=== PATIENT | female | born 1985 ===

== ENCOUNTER → 2020-02-17 | Outpatient (CLI) | payer BC ==
--- NOTE | 2020-02-17 22:38 | CT ---
EXAMINATION TYPE: CT sinus wo con DATE OF EXAM: 02/17/2020 COMPARISON: None HISTORY: Chronic sinusitis CT DLP: 577.30 mGycm CONTRAST: 0 mL of Isovue 300 The paranasal sinuses are examined in the axial plane at 2 mm thick sections. Reconstructed images i n the coronal plane were obtained. There is dental amalgam scatter artifact The maxillary sinuses are clear. The ethmoid air cells are clear. The sphenoid sinuses are clear. The frontal sinuses are clear. The septum is evaluated. There is septal deviation to the left. The left ostiomeatal unit is patent. The right hiatus semilunaris is not clearly patent. IMPRESSIONS: 1. There may be obstruction of the right ostiomeatal unit. 2. No suspicious changes to acute sinusitis are evident.
== END | disposition home or self-care (01) ==
LOC: RADCTMAIN 12:57
PROVIDERS: ATTEND Family Medicine
DX: J32.9 Chronic sinusitis, unspecified (principal)
CPT/HCPCS: 70486

== ENCOUNTER → 2020-04-08 | Outpatient (CLI) | payer BC ==
--- NOTE | 2020-04-08 08:12 | US ---
EXAMINATION TYPE: US abdomen complete DATE OF EXAM: 04/08/2020 COMPARISON: NONE CLINICAL HISTORY: 34-year-old female R10.9 abdominal pain. TECHNIQUE: Multiple sonographic images of the abdomen are obtained. FINDINGS: EXAM MEASUREMENTS: Liver Length: 14.9 cm Gallbladder Wall: 0.2 cm CBD: 0.2 cm Spleen: 9.3 cm Right Kidney: 11.5 x 4.5 x 5.7 cm Left Kidney: 10.8 x 5.7 x 5.3 cm Wet Pour Supervisor notes: Patient of large body habitus. Pancreas: Most of the pancreas is obscured by bowel gas. Liver: heterogeneous with increased echogenicity. There is a 2.6 x 1.9 x 1.7 cm round hypoechoic les ion within the right liver lobe. There seems to be some posterior transmission. Some focal fatty spar ing along the gallbladder fossa. Gallbladder: wnl Evidence for sonographic Tapia's sign: no CBD: wnl Spleen: wnl Right Kidney: No hydronephrosis. Left Kidney: lobular contour, superior pole obscured by bowel gas. No hydronephrosis. Upper IVC: wnl Abd Aorta: wnl IMPRESSION: 1. Moderate hepatic steatosis. 2. A 2.6 cm indeterminate right liver lobe lesion. Given posterior through transmission, this may rep resent a hemangioma. Contrast enhanced liver MRI recommended for more definitive characterization. 3. No gallstones or biliary ductal dilatation. 4. Suboptimal visualization of the pancreas.
== END | disposition home or self-care (01) ==
LOC: RADUSWWP 07:08
PROVIDERS: ATTEND Family Medicine
DX: K76.0 Fatty (change of) liver, not elsewhere classified (principal); K76.89 Other specified diseases of liver
CPT/HCPCS: 76700

== ENCOUNTER → 2020-07-04 | Outpatient (CLI) | payer BC ==
--- NOTE | 2020-07-04 21:39 | US ---
EXAMINATION TYPE: Transabdominal DATE OF EXAM: 07/04/2020 4:13 PM COMPARISON: NONE CLINICAL HISTORY: Z36 CONFIRM DATES. confirm dates EXAM PERFORMED: Transvaginal (TV) and Transabdominal (TA) EXAM MEASUREMENTS: GESTATIONAL AGE / DATING Physician Established: Not yet established Dates by LMP: (10 weeks/3 days) EDC: 01/27/21 Dates by First Scan: No previous this is first scan Dates by Current Scan for: (7 weeks/3 days) - MSD EDC: 02/17/21 MATERNAL ANATOMY Uterus: 12.1 x 5.6 x 6.0cm Right Ovary: 2.9 x 1.7 x 1.3cm Left Ovary: 3.2 x 1.7 x 1.6cm Post CDS / Adnexa: appears wnl Presence of free fluid: no Presence of corpus luteal cyst: isoechoic area left ovary = 1.4 x 1.8 x 1.5cm GESTATION / SURVEY MSD: 2.6cm (7 weeks/3 days) Yolk Sac (normal less than 6mm): not seen no evidence of pole at this time Date of LMP: 04/22/20 Beta HcG (if available): Not available at this time Anteverted uterus. Prominent central anechoic area measuring 4.5 x 0.8 x 3.0 cm. Perhaps mild surroun ding decidual reaction. No yolk sac or pole seen. No free fluid in pelvic cul-de-sac. Both ovaries are identified with peripheral follicles. Left ovary has peripheral isoechoic lesion 1.5 cm hypervascular lesion consistent with corpus luteal cyst. No suspicious extra ovarian adnexal lesions. IMPRESSION: Abnormal study. Possible gestational sac is elongated, for size there should be visualize d yolk sac and pole. Suspect spontaneous , too early to visualize intrauterine pregnanc y less likely, ectopic not excluded. Consider serial beta hCG and ultrasound follow-up base d on clinical correlation.
== END | disposition home or self-care (01) ==
LOC: RADUSWWP 15:36
PROVIDERS: ATTEND Obstetrics & Gynecology
DX: O28.3 Abnormal ultrasonic finding on antenatal screening of mother (principal)
CPT/HCPCS: 76801; 76817

== ENCOUNTER → 2020-07-05 | Outpatient (CLI) | payer BC ==
[2020-07-05 16:43] LABS: Basophils # (A) 0.1 k/uL (0-0.2); Basophils % (A) 1 %; Eosinophils # (A) 0.2 k/uL (0-0.7); Eosinophils % (A) 2 %; HCT 41.4 % (34.0-46.0); HGB 13.7 gm/dL (11.4-16.0); Lymphocytes # (A) 2.8 k/uL (1.0-4.8); Lymphocytes % (A) 23 %; MCH 27.5 pg (25.0-35.0); MCHC 33.1 g/dL (31.0-37.0); MCV 83.2 fL (80.0-100.0); Mean Platelet Volume 8.3; Monocytes # (A) 0.5 k/uL (0-1.0); Monocytes % (A) 4 %; Neutrophils # (A) 8.3 k/uL (1.3-7.7); Neutrophils % (A) 69 %; Platelet Count 241 k/uL (150-450); RBC 4.97 m/uL (3.80-5.40); RDW 13.6 % (11.5-15.5); WBC 12.1 k/uL (3.8-10.6)
[2020-07-05 16:52] LABS: ALT 23 U/L (4-34); AST 30 U/L (14-36); African American GFR (CKD) >90 (>60 ml/min/1.73 sqM); Albumin 4.6 g/dL (3.5-5.0); Alkaline Phosphatase 80 U/L (38-126); Anion Gap 13 mmol/L; Blood Urea Nitrogen 9 mg/dL (7-17); Calcium 9.4 mg/dL (8.4-10.2); Carbon Dioxide 21 mmol/L (22-30); Chloride 103 mmol/L (98-107); Glucose 127 mg/dL (74-99); Non-African American GFR(CKD) >90 (>60 ml/min/1.73 sqM); Potassium 3.8 mmol/L (3.5-5.1); Sodium 137 mmol/L (137-145); Total Bilirubin 0.8 mg/dL (0.2-1.3); Total Protein 8.4 g/dL (6.3-8.2)
[2020-07-05 16:54] LABS: Prothrombin Time 10.6 sec (9.0-12.0)
--- NOTE | 2020-07-05 17:13 | US ---
EXAMINATION TYPE: Transabdominal DATE OF EXAM: 07/05/2020 4:49 PM COMPARISON: NONE CLINICAL HISTORY: O03.4 Incomplete spontaneous without complications. no bleeding or crampin g. us done here yesterday EXAM PERFORMED: Transabdominal (TA) EXAM MEASUREMENTS: GESTATIONAL AGE / DATING Physician Established: Not yet established Dates by LMP: (10 weeks/4 days) EDC: 01/27/21 Dates by First Scan: no pole on prior exam Dates by Current Scan for: (7 weeks/6 days) - MSD EDC: 02/15/21 MATERNAL ANATOMY Uterus: 10.4 x 5.4 x 6.8cm Right Ovary: 2.6 x 1.4 x 1.5cm Left Ovary: 2.8 x 1.7 x 2.0cm Post CDS / Adnexa: appears wnl Presence of free fluid: no Presence of corpus luteal cyst: isoechoic area left ovary = 1.6 x 1.5 x 1.3cm, compatible with corpus luteal cyst. GESTATION / SURVEY MSD: 2.7cm (7 weeks/6 days) Yolk Sac (normal less than 6mm): not seen no pole identified at this time Date of LMP: 04/22/20 Beta HcG (if available): Not available at this time IMPRESSION: Redemonstrated probable gestational sac without evidence of yolk sac or pole.
[2020-07-05 17:41] LABS: HCG,Quantitative Serum 34648.9 mIU/mL
== END | disposition home or self-care (01) ==
LOC: RADUSWWP 16:19
PROVIDERS: ATTEND Family Medicine
DX: O03.4 Incomplete spontaneous abortion without complication (principal)
CPT/HCPCS: 36415; 76801; 80053; 84702; 85025; 85610; 85730; 86850; 86900; 86901

== ENCOUNTER → 2020-07-13 | Outpatient (CLI) | payer BC | END | disposition home or self-care (01) | LOC: LABWHC1 15:58 | PROVIDERS: ATTEND Obstetrics & Gynecology | DX: O20.0 Threatened abortion (principal) | CPT/HCPCS: 36415; 84702 ==

== ENCOUNTER → 2020-07-15 | Outpatient (CLI) | payer BC ==
--- NOTE | 2020-07-15 13:44 | US ---
EXAMINATION TYPE: Transabdominal DATE OF EXAM: 07/15/2020 8:09 AM COMPARISON: NONE CLINICAL HISTORY: Z36 FU abnormal us. EXAM PERFORMED: Transabdominal (TA) EXAM MEASUREMENTS: GESTATIONAL AGE / DATING Physician Established: Not yet established Dates by LMP: (12 weeks/0 days) EDC: 01-27-21 Dates by First Scan: Not applicable Dates by Current Scan for: Unable to date by today's study MATERNAL ANATOMY Uterus: 11.8 x 5.6 x 7.1cm Right Ovary: 2.7 x 1.2 x 1.6cm Left Ovary: 3.0 x 2.0 x 1.9cm Post CDS / Adnexa: wnl Presence of free fluid: no Presence of corpus luteal cyst: no Presence of subchorionic bleed: yes, measuring 1.5 x 0.8 x 1.4cm GESTATION / SURVEY MSD: 3.0cm (8 weeks/3 days) Date of LMP: 04-22-20 Beta HcG (if available): Not available at this time Empty gestational sac again visualized. IMPRESSION: 1. Intrauterine gestational sac. No pole or yolk sac is identified. This could be related to bl ighted ovum. Mean sac diameter would normally be compatible with an 8 week 3 day gestation. This inte rval growth is less than the expected given the timeframe difference from the prior exam. 2. Small subchorionic hemorrhage appears to be adjacent to the gestational sac.
== END | disposition home or self-care (01) ==
LOC: RADUSWWP 07:49
PROVIDERS: ATTEND Obstetrics & Gynecology
DX: Z36.87 Encounter for antenatal screening for uncertain dates (principal); Z3A.00 Weeks of gestation of pregnancy not specified
CPT/HCPCS: 76801

== ENCOUNTER → 2020-07-21 | Outpatient (CLI) | payer BC | END | disposition home or self-care (01) | LOC: LABWHC1 11:20 | PROVIDERS: ATTEND Obstetrics & Gynecology | DX: O20.0 Threatened abortion (principal) | CPT/HCPCS: 36415; 84702 ==

== ENCOUNTER 2020-07-22 18:59 | Inpatient (IN) | payer BC ==
[2020-07-22] MEDS ORDERED: SODIUM CHLORIDE 0.9% 1,000 ML IV STA ×2 (19:37)
--- NOTE | 2020-07-22 20:42 | P.HPOB ---
History of Present Illness H&P Date: 07/22/20 Chief Complaint: blighted ovum with hemorrhage 35 year old was recently diagnosed with a blighted ovum. Dr Menarde has been following [facility]. She started bleeding this morning and went to [facility] ED. Her hgb was originally 10 and dropped to 6.5. At this time pt was transferred to [facility] ED and was given 1 unit of PRBCs. Her vitals are stable. Her bleeding is slowing but still present. Review of Systems All systems: negative Constitutional: Denies chills, Denies fever Eyes: denies blurred vision, denies pain Ears, nose, mouth and throat: Denies headache, Denies sore throat Cardiovascular: Denies chest pain, Denies shortness of breath Respiratory: Denies cough Gastrointestinal: Denies abdominal pain, Denies diarrhea, Denies nausea, Denies vomiting Genitourinary: Denies dysuria, Denies hematuria Musculoskeletal: Denies myalgias Integumentary: Denies pruritus, Denies rash Neurological: Denies numbness, Denies weakness Psychiatric: Denies anxiety, Denies depression Endocrine: Denies fatigue, Denies weight change Past Medical History Past Medical History: No Reported History History of Any Multi-Drug Resistant Organisms: None Reported Past Surgical History: Section Past Anesthesia/Blood Transfusion Reactions: No Reported Reaction Past Psychological History: No Psychological Hx Reported Smoking Status: Never smoker Past Alcohol Use History: None Reported Past Drug Use History: None Reported Medications and Allergies Home Medications Medication Instructions Recorded Confirmed Type No Known Home Medications 07/22/20 07/22/20 History Allergies Allergy/AdvReac Type Severity Reaction Status Date / Time shellfish derived [Shrimp] Allergy Rash/Hives Verified 07/22/20 19:40 Exam Osteopathic Statement: *. No significant issues noted on an osteopathic structural exam other than those noted in the History and Physical/Consult. Vital Signs Temp Pulse Resp BP Pulse Ox 07/22/20 19:21 109/53 07/22/20 19:13 98.1 F 82 18 93/35 100 Intake and Output 07/22/20 07/22/20 07/22/20 06:59 14:59 22:59 Other: Weight 75.75 kg HEart: RRR Lungs: CTAB Abdomen: soft, nontender Extremeties: neg destiny's pelvic exam: small amount of blood in vaginal vault. Cervix is dilated to 1cm and I feel tissue at the os, unable to grasp or remove. Assessment and Plan (1) Blighted ovum Current Visit: Yes Status: Acute Code(s): O02.0 - BLIGHTED OVUM AND NONHYDATIDIFORM MOLE SNOMED Code(s): 37202863 (2) Acute blood loss anemia Current Visit: Yes Status: Acute Code(s): D62 - ACUTE POSTHEMORRHAGIC ANEMIA SNOMED Code(s): 162537311 Plan: 1. suction D&C: I discussed the risks, benefits, and alternatives with the patient and her . They expressed full understanding and would like the D&C done.
[2020-07-22 20:56] LABS: Basophils % (A) 0 %; Eosinophils # (A) 0.1 k/uL (0-0.7); Eosinophils % (A) 1 %; HCT 34.4 % (34.0-46.0); HGB 11.1 gm/dL (11.4-16.0); Lymphocytes # (A) 0.9 k/uL (1.0-4.8); Lymphocytes % (A) 5 %; MCH 27.3 pg (25.0-35.0); MCHC 32.4 g/dL (31.0-37.0); MCV 84.2 fL (80.0-100.0); Mean Platelet Volume 8.5; Monocytes # (A) 0.3 k/uL (0-1.0); Monocytes % (A) 2 %; Neutrophils # (A) 18.1 k/uL (1.3-7.7); Neutrophils % (A) 93 %; Platelet Count 220 k/uL (150-450); RBC 4.08 m/uL (3.80-5.40); RDW 13.8 % (11.5-15.5); WBC 19.6 k/uL (3.8-10.6)
[2020-07-22 21:01] LABS: ALT 15 U/L (4-34); AST 18 U/L (14-36); African American GFR (CKD) >90 (>60 ml/min/1.73 sqM); Alkaline Phosphatase 59 U/L (38-126); Anion Gap 5 mmol/L; Blood Urea Nitrogen 7 mg/dL (7-17); Calcium 7.7 mg/dL (8.4-10.2); Carbon Dioxide 21 mmol/L (22-30); Chloride 109 mmol/L (98-107); Glucose 128 mg/dL (74-99); Non-African American GFR(CKD) >90 (>60 ml/min/1.73 sqM); Potassium 4.1 mmol/L (3.5-5.1); Sodium 135 mmol/L (137-145); Total Bilirubin 1.2 mg/dL (0.2-1.3); Total Protein 5.8 g/dL (6.3-8.2)
[2020-07-22] MEDS ORDERED: ONDANSETRON 4 MG/2 ML VIAL IVP PRN (21:15)
[2020-07-22] MEDS ORDERED: HYDROcodone/APAP 5-325MG 1 EACH TAB PO PRN (21:15)
[2020-07-22] MEDS ORDERED: NALOXONE 0.4 MG/ML 1 ML VIAL IV PRN (21:15)
[2020-07-22] MEDS ORDERED: ACETAMINOPHEN TAB 325 MG TAB PO PRN (21:15)
[2020-07-22] MEDS ORDERED: LIDOCAINE 1% INJ 10MG/ML (20 ML MDV) ONE (21:20)
[2020-07-22] MEDS ORDERED: PROPOFOL 10 MG/ML 20 ML VIAL IV ONE (21:20)
[2020-07-22] MEDS ORDERED: LACTATED RINGERS 1,000 ML IV ONE (21:20)
[2020-07-22] MEDS ORDERED: fentaNYL (PF) 50 MCG/ML 2 ML AMP ONE (21:20)
[2020-07-22] MEDS ORDERED: KETOROLAC 30 MG/ML 1 ML VIAL ONE (21:20)
[2020-07-22] MEDS ORDERED: MIDAZOLAM 2 MG/2 ML VIAL ONE (21:20)
--- NOTE | 2020-07-22 21:25 | ED ---
General Adult HPI - General Chief complaint: Recheck/Abnormal Lab/Rx Stated complaint: Vaginal Bleeding Time Seen by Provider: 07/22/20 19:22 Source: EMS Mode of arrival: EMS Limitations: no limitations - History of Present Illness Initial comments: This 35-year-old female presents as transfer from [facility] for vaginal bleeding. She states that she has had intermittent bleeding over the past couple of weeks. She is approximately 9 weeks . She was seen and her [facility]SEL[facility] doctor's office and they apparently did see a sac but no heart tones. She was told that she likely is having a miscarriage and that she will eventually pass the fetus. She then started having severe bleeding earlier today. She states that she had a profuse amount of vaginal bleeding as well as some lower abdominal cramping and went to the other hospital. They apparently did an ultrasound which didn't show any acute findings. Please see report for details. Of note, her hemoglobin initially was 10.8 and then dropped to 6.5 approximately 90 minutes later. She does relate having a syncopal episode and severe lightheadedness with any standing earlier today at home. She also had a syncopal episode on the toilet at the other hospital. She denies any injuries. No other complaints or modifying factors. - Related Data Home Medications Medication Instructions Recorded Confirmed No Known Home Medications 07/22/20 07/22/20 Allergies Allergy/AdvReac Type Severity Reaction Status Date / Time shellfish derived [Shrimp] Allergy Rash/Hives Verified 07/22/20 19:40 Review of Systems ROS Statement: Those systems with pertinent positive or pertinent negative responses have been documented in the HPI. ROS Other: All systems not noted in ROS Statement are negative. Past Medical History Past Medical History: No Reported History History of Any Multi-Drug Resistant Organisms: None Reported Past Surgical History: Section Past Anesthesia/Blood Transfusion Reactions: No Reported Reaction Past Psychological History: No Psychological Hx Reported Smoking Status: Never smoker Past Alcohol Use History: None Reported Past Drug Use History: None Reported General Exam - General Exam Comments Initial Comments: Constitutional: Alert and oriented, no apparent distress Vitals: Reviewed, please see nursing notes HEENT: No gross trauma identified, trachea midline, no respiratory distress Neck: No tenderness, good range of motion Heart: Regular rate and rhythm without murmur Lungs: Clear to auscultation bilaterally, no wheezing rhonchi or rales Abdomen: There is only very slight tenderness noted to the suprapubic region. Pelvic exam is deferred to [facility]ATIONAL COUNSEL[facility]. Back: No tenderness Neurologic: No gross sensory or motor deficits identified Integumentary: No rash or change in pigmentation Psychiatric: Alert and oriented, appropriate mood and affect Limitations: no limitations Course Vital Signs 07/22/20 07/22/20 19:13 19:21 Temperature 98.1 F Pulse Rate 82 Respiratory 18 Rate Blood Pressure 93/35 109/53 O2 Sat by Pulse 100 Oximetry Medical Decision Making - Medical Decision Making The patient was seen and examined. All diagnostics are reviewed. Old records from the previous hospital are also reviewed in detail. It appears that her hemoglobin had dropped to 6.5 from 10.8 while at the other facility. They did transfuse her 1 unit of blood. She also received IV fluids upon arrival here as her blood pressure is slightly low. Repeat labs here do show an improved hemoglobin and the 11th. She also had some slight decrease in her CO2 on her labs. IV fluids were continued and her blood pressure does improve. The case is discussed with Dr. Castillo from [facility] and she does present to the emergency department and does evaluate the patient. The pelvic exam showed continued bleeding and she would like to take the patient up to the operating room for a suction D&C. The patient and are agreeable. She is transferred to the operating room without further incident and admission orders are placed. - Lab Data Result diagrams: 07/22/20 20:44 07/22/20 20:46 Lab Results 07/22/20 07/22/20 Range/Units 20:44 20:46 WBC 19.6 H (3.8-10.6) k/uL RBC 4.08 (3.80-5.40) m/uL Hgb 11.1 L (11.4-16.0) gm/dL Hct 34.4 (34.0-46.0) % MCV 84.2 (80.0-100.0) fL MCH 27.3 (25.0-35.0) pg MCHC 32.4 (31.0-37.0) g/dL RDW 13.8 (11.5-15.5) % Plt Count 220 (150-450) k/uL MPV 8.5 Neutrophils % 93 % Lymphocytes % 5 % Monocytes % 2 % Eosinophils % 1 % Basophils % 0 % Neutrophils # 18.1 H (1.3-7.7) k/uL Lymphocytes # 0.9 L (1.0-4.8) k/uL Monocytes # 0.3 (0-1.0) k/uL Eosinophils # 0.1 (0-0.7) k/uL Basophils # 0.0 (0-0.2) k/uL Sodium 135 L (137-145) mmol/L Potassium 4.1 (3.5-5.1) mmol/L Chloride 109 H (98-107) mmol/L Carbon Dioxide 21 L (22-30) mmol/L Anion Gap 5 mmol/L BUN 7 (7-17) mg/dL Creatinine 0.41 L (0.52-1.04) mg/dL Est GFR (CKD-EPI)AfAm >90 (>60 ml/min/1.73 sqM) Est GFR (CKD-EPI)NonAf >90 (>60 ml/min/1.73 sqM) Glucose 128 H (74-99) mg/dL Calcium 7.7 L (8.4-10.2) mg/dL Total Bilirubin 1.2 (0.2-1.3) mg/dL AST 18 (14-36) U/L ALT 15 (4-34) U/L Alkaline Phosphatase 59 (38-126) U/L Total Protein 5.8 L (6.3-8.2) g/dL Albumin 3.0 L (3.5-5.0) g/dL Disposition Clinical Impression: Anemia, Miscarriage, Vaginal bleeding, Syncope, Hypotension Disposition: ADMITTED IP TO THIS [facility] Condition: Fair Is patient prescribed a controlled substance at d/c from ED?: No Referrals: Beto Nowak MD [Primary Care Provider] - 1-2 days Time of Disposition: 21:25 Decision Date: 07/22/20 Decision Time: 21:25
--- NOTE | 2020-07-22 21:49 | P.OP ---
Date of Procedure: 07/22/20 Preoperative Diagnosis: 1. Blighted ovum 2. acute blood loss anemia Postoperative Diagnosis: 1. Blighted ovum 2. acute blood loss anemia Procedure(s) Performed: Suction D&C Anesthesia: RADHA Surgeon: Willow Castillo Estimated Blood Loss (ml): 100 IV fluids (ml): 200 Urine output (ml): 20 Pathology: other (products of conception) Condition: stable Disposition: PACU Operative Findings: moderate amount products of conception, cervix dilated to 1-2 cm Description of Procedure: Patient is taken the operating room where general anesthesia obtained without difficulty. She was prepped and draped in normal sterile fashion dorsal lithotomy position, legs placed in candycane stirrups. Bladder was drained of all urine. Weighted speculum place in vagina and the anterior lip the cervix was grasped with a single-tooth tenaculum. The cervix was 30 found to be dilated to #12 Hegar dilator. #12 curved suction curet was introduced into the uterus and passed several times to obtain tissue and blood. Sharp curet was used to ensure that all tissue had been removed. The suction curet was introduced a few more times to ensure all blood had been removed. Hemostasis was assured. All instruments removed from the vagina. Patient tolerated procedure well. Sponge and instrument counts correct 2. She was taken to recovery in stable condition.
[2020-07-22] MEDS ORDERED: IBUPROFEN 600 MG TAB PO PRN (22:10)
[2020-07-22] MEDS ORDERED: METOCLOPRAMIDE 5 MG/ML 2 ML VIAL IVP PRN (22:10)
[2020-07-22] MEDS ORDERED: KETOROLAC 15 MG/ML 1 ML VIAL IVP PRN (22:10)
[2020-07-22] MEDS ORDERED: diphenhydrAMINE 50 MG/ML 1 ML VIAL IVP PRN (22:10)
[2020-07-22] MEDS ORDERED: SIMETHICONE 80 MG CHEWABLE PO PRN (22:10)
[2020-07-22] MEDS ORDERED: SODIUM CHLORIDE 0.9% 500 ML 250 ML IV ONE (23:54)
[2020-07-23 07:08] LABS: Basophils % (A) 0 %; Eosinophils # (A) 0.1 k/uL (0-0.7); Eosinophils % (A) 1 %; HCT 26.7 % (34.0-46.0); Lymphocytes # (A) 2.1 k/uL (1.0-4.8); Lymphocytes % (A) 18 %; MCH 27.7 pg (25.0-35.0); MCHC 32.9 g/dL (31.0-37.0); MCV 84.2 fL (80.0-100.0); Mean Platelet Volume 8.5; Monocytes # (A) 0.5 k/uL (0-1.0); Monocytes % (A) 4 %; Neutrophils % (A) 76 %; Platelet Count 167 k/uL (150-450); RBC 3.17 m/uL (3.80-5.40); WBC 11.9 k/uL (3.8-10.6)
[2020-07-23 07:19] LABS: HGB 8.8 gm/dL (11.4-16.0)
[2020-07-23 07:20] LABS: African American GFR (CKD) >90 (>60 ml/min/1.73 sqM); Anion Gap 5 mmol/L; Blood Urea Nitrogen 5 mg/dL (7-17); Calcium 7.5 mg/dL (8.4-10.2); Carbon Dioxide 20 mmol/L (22-30); Chloride 109 mmol/L (98-107); Glucose 87 mg/dL (74-99); Non-African American GFR(CKD) >90 (>60 ml/min/1.73 sqM); Potassium 3.4 mmol/L (3.5-5.1); Sodium 134 mmol/L (137-145)
[2020-07-23] MEDS ORDERED: PANTOPRAZOLE 40 MG TABLET PO SCH (07:30)
--- NOTE | 2020-07-23 09:12 | P.DS ---
Providers Date of admission: 07/22/20 21:15 Expected date of discharge: 07/23/20 Attending physician: Willow Castillo Primary care physician: Beto Nowak - Discharge Diagnosis(es) (1) Blighted ovum Current Visit: Yes Status: Acute (2) Acute blood loss anemia Current Visit: Yes Status: Acute (3) Status post D&C Current Visit: Yes Status: Acute Hospital Course: Patient diagnosed with a blighted ovum and then presented to [facility] with heavy vaginal bleeding. Her hemoglobin at [facility] went from 10- 6.5. This started 1 unit of packed red blood cells. She was then transferred to the [facility] since they do not have HEALTH TECHNICIAN coverage at [facility]. The nature her blood well her 1 unit was hanging her hemoglobin was 11. We took her to the operating room for a suction D&C after informed consent was obtained. A moderate to large amount of products of conception was removed and sent to pathology. Her hemoglobin this morning is 8.8. Her vitals are stable. She is not tachycardic and her blood pressures 90s over 50s. She is voiding well. Denies nausea, vomiting, chest pain, shortness of breath or calf pain. Her bleeding is minimal now. When she ambulates she is not lightheaded or dizzy, no headaches or vision changes. Patient will be discharged home postoperative day #1 in stable condition to follow-up with Dr. Cordova in 2-3 weeks. Patient Condition at Discharge: Fair Plan - Discharge Summary Discharge Rx Participant: Yes New Discharge Prescriptions: New Ibuprofen [Motrin] 600 mg PO Q6HR PRN #30 tab PRN Reason: Mild Discomfort Discharge Medication List Ibuprofen [Motrin] 600 mg PO Q6HR PRN #30 tab 07/23/20 [Rx] Follow up Appointment(s)/Referral(s): Beto Nowak MD [Primary Care Provider] - 1-2 days Charlotte Cordova DO [Doctor of Osteopathic Medicine] - 2 Weeks Discharge Disposition: HOME SELF-CARE
[2020-07-23 09:50] VITALS: BP 94/59; PULSE 80; RESP 16; TEMP 98.3
== END 2020-07-23 11:00 | disposition home or self-care (01) | DRG 832 ==
LOC: EC 18:59 → 6PED 21:15
PROVIDERS: ADMIT Obstetrics & Gynecology; ATTEND Obstetrics & Gynecology
PROC: 10D07Z6 Extraction of Products of Conception, Vacuum, Via Natural or Artificial Opening (ICD-10-PCS; principal; 2020-07-22 21:06)
DX: O02.0 Blighted ovum and nonhydatidiform mole (principal); D62 Acute posthemorrhagic anemia; O03.9 Complete or unspecified spontaneous abortion without complication; Z3A.09 9 weeks gestation of pregnancy; I95.9 Hypotension, unspecified; Z91.013 Allergy to seafood
CPT/HCPCS: 36415; 80048; 80053; 85025; 86850; 86900; 86901; 88305; 99285

== ENCOUNTER → 2020-09-23 | Outpatient (CLI) | payer BC ==
[2020-09-26 14:36] LABS: Egg Yolk IgE Class CLASS 0
== END | disposition home or self-care (01) ==
LOC: LABWHC1 15:58
PROVIDERS: ATTEND Otolaryngology
DX: L50.0 Allergic urticaria (principal)
CPT/HCPCS: 36415; 86003

== ENCOUNTER → 2020-11-04 | Outpatient (CLI) | payer BC ==
--- NOTE | 2020-11-04 12:07 | CT ---
EXAMINATION TYPE: CT abdomen pelvis wo con DATE OF EXAM: 11/04/2020 COMPARISON: None HISTORY: 35-year-old female LLQ pain. Stat hold and call CT DLP: 485.10 mGycm. Automated exposure control for dose reduction was used. TECHNIQUE: Contiguous axial scanning of the abdomen and pelvis without IV contrast. Coronal and sagit tim reconstructions performed. FINDINGS: Heart normal size without pericardial effusion. Lung bases clear without pleural effusion. Liver mildly enlarged at 18.4 cm with mildly diminished attenuation suggesting fatty infiltration. Otherwise, noncontrast appearance of the gallbladder, adrenal glands, kidneys, spleen, pancreas withi n normal limits. Tiny fatty umbilical hernia. Numerous nonenlarged and borderline to mildly enlarged mesenteric lymph nodes throughout, greatest in the central mid abdomen measuring up to 1 cm. No dilated small bowel, free fluid, or free air. Normal appendix. Mild stool burden. No pericolonic inflammatory change. Bladder is collapsed. Uterus anteverted. Both ovaries are visualized with follicular change. A couple small pelvic phleboliths. No abnormal fluid collection in the pelvis or pelvic lymphadenopathy. Bones: There is a transitional lumbosacral segment IMPRESSION: 1. Numerous lymph nodes throughout the mesentery, some of which are borderline to mildly enlarged me asuring up to 1 cm. Consider mesenteric adenitis. 2. Mild hepatomegaly (18.4 cm) with mild fatty infiltration. 3. Otherwise, no acute inflammatory process identified in the abdomen or pelvis to explain the topher ent's symptoms.
== END | disposition home or self-care (01) ==
LOC: RADCTMAIN 10:57
PROVIDERS: ATTEND Nurse Practitioner Adult Health
DX: R10.32 Left lower quadrant pain (principal); K76.0 Fatty (change of) liver, not elsewhere classified
CPT/HCPCS: 74176